=== PATIENT | female | born 1935 | race Caucasian/White ===

== ENCOUNTER 2019-07-06 05:38 | Inpatient (IN) | payer OTHER ==
[~2019-07-06] VITALS: Ht 154.9 cm; Wt 68.9 kg
[2019-07-06] VITALS (10 sets, daily range): BP systolic 103–180; BP diastolic 38–64
[~2019-07-06 05:38] MED LIST: AMITRIPTYLINE H25 M3; ATIVAN1 MG PO; BUTRANS1 EAC1; COLACE100 MG; CREAM; HYDROCODON-ACE1 EAC5; IBUPROFEN 800800 M1; IBUPROFEN 800800 M1 PO; LIDODERM 5%1 PATCH; LYRICA 75 MG CA75 MG; MECLIZINE HCL25 M1 PO; MULTIVITAMINS PO; NEURONTIN 300300 M1; NEURONTIN600 MG PO; NORCO 5-325 TA1 EACH PO; TRAMADOL 50 MG50 MG PO
[2019-07-06 06:14] LABS: HEMATOCRIT 47.9 % (37.0-47.0); HEMOGLOBIN 16.7 gm/dL (12.0-15.0); MCH 31.1 pg (26.0-34.0); MCHC 34.8 g/dL (28.0-37.0); MCV 89.2 fL (80.0-100.0); MPV 7.2 fl. (7.2-11.1); NUCLEATED RBCS 0 /100WBC; PLATELET COUNT* 242 thou/uL (150-400); RBC 5.37 mil/uL (4.20-5.00); WBC 15.8 thou/uL (4.0-11.0)
[2019-07-06 06:23] LABS: CALCIUM 8.9 mg/dL (8.5-10.1); CREATININE 0.8 mg/dL (0.6-1.3)
[2019-07-06 06:26] LABS: PROTIME 10.5 Seconds (9.20-11.50)
[2019-07-06 06:33] LABS: ALBUMIN 3.8 g/dL (3.4-5.0); MAGNESIUM 1.6 mg/dL (1.8-2.4); TOTAL BILIRUBIN 0.7 mg/dL (<0.1-1.0)
[2019-07-06 06:56] LABS: ABSOLUTE LYMPHOCYTES 2.5 thou/uL (0.8-5.3); ABSOLUTE MONOCYTES 1.3 thou/uL (0.0-1.2); ATYPICAL LYMPHS 4 %; PLATELET ESTIMATE ADEQUATE
[2019-07-06 07:16] LABS: INFLUENZA A ANTIGEN Negative (Negative); INFLUENZA B ANTIGEN Negative (Negative)
--- NOTE | 2019-07-06 08:45 | NUR ---
PT IS A/O X4,VSS,CARDIA CMONITOR IN PLACE.4L O2 NC WITH O2 SAT 95%.NO C/O PAIN.C/O NAUSEA WITH MEDICATIONS GIVEN.COVID ISOLATION MAINTAINED UNTIL RESULTS.UA SENT.CALL LIGHT AND FALL PRECAUTIONS IN PLACE.WILL CONTINUE TO MONITOR.
[2019-07-06 11:24] LABS: URINE BILIRUBIN NEGATIVE (Negative); URINE BLOOD NEGATIVE (Negative); URINE CLARITY CLEAR; URINE COLOR YELLOW; URINE GLUCOSE-RANDOM NEGATIVE (Negative); URINE KETONES NEGATIVE (Negative); URINE LEUKOCYTES-REFLEX NEGATIVE (Negative); URINE NITRITE-REFLEX NEGATIVE (Negative); URINE PROTEIN 1+ (Negative); URINE SPECIFIC GRAVITY >= 1.030 (1.005-1.030); URINE UROBILINOGEN 0.2 E.U./dl (0.2-1.0)
--- NOTE | 2019-07-06 13:30 | NUR ---
PT TO TRANSFER TO [facility] UNIT ROOM 114.REPORT CALLED.ALL PERSONAL BELONGINGS PACKED.PT TRANSFERRED BY WHEELCHAIR WITH NURSING STAFF.
--- NOTE | 2019-07-06 14:26 | NUR ---
PT TRANSFERRED TO UNIT. PT ALERT AND ORIENTED. PT ORIENTED TO NEW ROOM. PT HELEN ANY NEEDS AT THIS TIME. FALL RISK PRECAUTIONS IN PLACE. WILL CONTINUE TO MONITOR.
--- NOTE | 2019-07-06 16:37 | EKG ---
[place] [address] ELECTROCARDIOGRAM REPORT Name: CHANTEL AKERS Room: [address] ADM IN M.R.#: [id number] Admission: 07/06/19 Attend Phys: Dannielle Pennington, Discharge: Date of : 37 Date of Service: 07/06/19 0544 Report #: [id number] THIS REPORT FOR: //name// [facility] ED Test Date: 2019-07-06 Test Time: 05:44:46 Pat Name: CHANTEL AKERS Department: Room: [facility] Gender: F [employer] Sales Representative: : 1935 Requested By: Alix Keith Order Number: [id number] MD: Elliot Aguilar Measurements Intervals [place] Rate: 96 P: 88 ID: [id number] QRS: 75 QRSD: 87 T: 68 QT: 348 QTc: 440 Interpretive Statements Sinus rhythm Atrial premature complex Borderline prolonged ID interval Consider left ventricular hypertrophy Compared to ECG 12/12/2011 19:54:58 Atrial premature complex(es) now present Electronically Signed On 07-06-2019 16:35:36 CDT by Elliot Aguilar [email or web address] <ELECTRONICALLY SIGNED> By: Elliot Aguilar MD, FACC 07/06/19 1635 0544 0544 Elliot Aguilar MD, FAC /EPI
--- NOTE | 2019-07-06 17:03 | NUR ---
PT REMAINED ALERT AND ORIENTED. PT SLEEPY AND RESTING IN BED. FLUIDS INFUSING. PT DENIES ANY NEEDS AT THIS TIME. FAMILY MEMBER CALLED STATING INFORMATION FROM PCP OFFICE ABOUT E.COLI IN THE URINE. FALL RISK PRECAUTIONS IN PLACE. HOURLY ROUNDING COMPLETED. WILL CONTINUE TO MONITOR.
[2019-07-07 03:04] VITALS: BP 115/43
--- NOTE | 2019-07-07 05:53 | NUR ---
ASSUMED CARE OF PT 07/06/19 APPROX 1905. PT A&OX4, ON 3L O2 NC, VSS, PT UP TO BSC FOR VOIDING, SR WITH 1D AVB ON TELE MONITOR. PT HAD NO COMPLAINTS THIS SHIFT. COVID-19 TEST RESULT 'NOT DETECTED' - PHYSICIAN NOTIFIED 07/07/19 AT APPROX 0520. ASSESSMENTS AND HOURLY ROUNDING COMPLETE. WILL CONTINUE TO MONITOR.
[2019-07-07 06:34] LABS: HEMATOCRIT 43.4 % (37.0-47.0); MCH 30.6 pg (26.0-34.0); MCHC 33.8 g/dL (28.0-37.0); MCV 90.3 fL (80.0-100.0); MPV 7.3 fl. (7.2-11.1); RBC 4.8 mil/uL (4.20-5.00); RDW-CV 13.3 % (10.5-14.5); WBC 11.6 thou/uL (4.0-11.0)
[2019-07-07 06:35] LABS: HEMOGLOBIN 14.7 gm/dL (12.0-15.0)
[2019-07-07 06:48] LABS: ALBUMIN 2.7 g/dL (3.4-5.0); CALCIUM 7.8 mg/dL (8.5-10.1); CREATININE 0.8 mg/dL (0.6-1.3); MAGNESIUM 2.5 mg/dL (1.8-2.4); POTASSIUM 4.3 mmol/L (3.5-5.1); TOTAL BILIRUBIN 0.3 mg/dL (<0.1-1.0); TOTAL PROTEIN 6.6 g/dL (6.4-8.2)
[2019-07-07 07:06] LABS: APTT 53.2 Seconds (25.0-31.3); PROTIME 10.7 Seconds (9.20-11.50)
[2019-07-07] MEDS ORDERED: PREDNISONE 20 M20 MG PO (07:59)
--- NOTE | 2019-07-07 08:45 | NUR ---
TRANSFER FROM [facility] TELEPHONE REPORT GIVEN PRIOR TO ARRIVAL PATIENT ARRIVAL VIA WC ORIENTED TO AND CALL LIGHT DENIES ANY PAIN
[2019-07-07 09:00] VITALS: BP 101/33
[2019-07-07 12:10] VITALS: BP 121/44
--- NOTE | 2019-07-07 17:36 | NUR ---
MULTIPLE ATTEMPTS TO TITRATE OXYGEN PATIENTS O2 SATS DROPPED TO LOW 80S ON RA REPLACED OXYGEN 2LNC AND O2 SATS UP TO 93-94%
[2019-07-07 19:40] VITALS: BP 121/57
[2019-07-07 23:44] VITALS: BP 140/55
[2019-07-08 04:00] VITALS: BP 146/70
--- NOTE | 2019-07-08 06:23 | NUR ---
RECEIVED REPORT AND ASSUMED CARE OF PATIENT AT 1900. VSS. SPO2 88-92 ON RA AT MIDNIGHT AND 0400. FULL ASSESSMENT COMPLETED CHARTED. ALL ROUNDINGS COMPLETED, ALL NEEDS MET. CALL LIGHT AND PERSONAL ITEMS IN REACH. PT SMOKES APPROX. 1 PACK/DAILY, REQUESTS NICOTINE PATCH.
[2019-07-08 08:00] VITALS: BP 157/63
[2019-07-08 09:08] VITALS: BP 157/63
--- NOTE | 2019-07-08 11:22 | NUR ---
ASSUMED PT CARE AT 0730, PT RESTING IN BED, SATTING 87% ON RA, ENCOURAGED PT TO DO PROPER BREATHING TECHNIQUES AND PT SAT INCREASED TO 93%. PT TRACING SR W/ A 1D ON THE BRICK YARD HAND AND HAD NO C/O PAIN OR SHORTNESS OF BREATH. PT GOAL IS TO WORK ON DC TO HOME TODAY AND MAINTAIN SATS ABOVE 92% ON RA. AM ASSESSMENT CHARTED, MEDS PER MAR, HOURLY ROUNDING OBSERVED, WILL CONTINUE POC.
--- NOTE | 2019-07-08 11:31 | NUR ---
DC ORDERS RECEIVED. DC PAPERWORK, CARE NOTES, PRESCRIPTIONS AND F/U APPTS GIVEN TO PT. PT COMMUNICATES UNDERSTANDING OF DC TEACHING. SILHOUETTE ARTIST AND IV REMOVED. PT DC'D TO HOME BY DAUGHTER'S PERSONAL VEHICLE VIA WC W/ NURSING STAFF W/ ALL PERSONAL BELONGINGS AND DC PAPERWORK.
== END 2019-07-08 11:28 | disposition home or self-care (01) | DRG 189 ==
LOC: M.ERS 05:38 → M.TBA-ER 06:49 → M.2W 06:49 → M.ORTHSURG 06:49 → M.ICU 08:43 → M.ORTHSURG 13:48 → M.2W 07-07 08:40
PROVIDERS: Emergency Medicine; Internal Medicine; ADMIT Internal Medicine
DX: J96.01 Acute respiratory failure with hypoxia (principal); J44.1 Chronic obstructive pulmonary disease with (acute) exacerbation; J44.0 Chronic obstructive pulmonary disease with (acute) lower respiratory infection; R65.10 Systemic inflammatory response syndrome (SIRS) of non-infectious origin without acute organ dysfunction; N39.0 Urinary tract infection, site not specified; J20.9 Acute bronchitis, unspecified; F17.210 Nicotine dependence, cigarettes, uncomplicated; M54.9 Dorsalgia, unspecified; G89.29 Other chronic pain; F41.1 Generalized anxiety disorder; T37.8X5A Adverse effect of other specified systemic anti-infectives and antiparasitics, initial encounter; G62.9 Polyneuropathy, unspecified; Z90.49 Acquired absence of other specified parts of digestive tract; Z90.710 Acquired absence of both cervix and uterus; Z98.49 Cataract extraction status, unspecified eye; Z79.899 Other long term (current) drug therapy; Z88.1 Allergy status to other antibiotic agents; Z88.0 Allergy status to penicillin; Z88.2 Allergy status to sulfonamides; Z88.8 Allergy status to other drugs, medicaments and biological substances; Y92.89 Other specified places as the place of occurrence of the external cause; Z20.828 Contact with and (suspected) exposure to other viral communicable diseases